=== PATIENT | female | born 1995 | race Caucasian/White ===

== ENCOUNTER 2016-10-22 18:03 | Emergency (ER) | payer OTHER ==
[2016-10-22 18:38] LABS: Hematocrit 40.7 % (37.0-47.0); Hemoglobin 13.6 gm/dL (12.5-16.0); Mean Cell Volume 81.6 fl (78-100); Mean Corpuscular Hemoglobin 27.3 pg (27-31); Mean Corpuscular Hgb Conc 33.4 g/dl (32-36); Mean Platelet Volume 9.6 fl (6.0-9.5); Neutrophil # 6.3 K/mm3 (1.3-6.0); Neutrophil % 61.2 % (42-75.0); Platelet Count 351 K/mm3 (150-450); Red Blood Count 4.99 M/mm3 (4.2-5.4); Red Cell Distribution Width 12.9 % (11.5-14.0); White Blood Count 10.2 K/mm3 (4.0-10.5)
[2016-10-22 18:55] LABS: ALT 66 U/L (19-67); AST 30 U/L (0-48); Alkaline Phosphatase * 49 U/L (50-170); Anion Gap 16.4 mmol/L (6.8-13.8); BUN/Creatinine Ratio 13.6 (9.0-21.6); Bilirubin, Total 0.3 mg/dL (0.0-1.1); Blood Urea Nitrogen 11 mg/dL (3-23); Ca. Corrected For Albumin 8.6 mg/dL (8.4-10.2); Calcium * 8.9 mg/dL (7.9-10.9); Carbon Dioxide 24.2 mmol/L (24-32.6); Chloride 105 mmol/L (97-106); Glucose * 99 mg/dL (70-110); Potassium 3.6 mmol/L (3.4-4.6); Sodium 142 mmol/L (132-142); Total Protein 7.7 gm/dL (6.2-8.2); Troponin I Less than 0.017 ng/ml (0.00-0.10)
[2016-10-22 19:02] LABS: Prothrombin Time (Patient) 9.5 Seconds (9.4-11.4)
[2016-10-22 19:03] LABS: INR 0.91 INR (0.90-1.10); Partial Thrombolplastin Time 26.2 Seconds (24-32)
[2016-10-22 20:15] VITALS: BP 134/87
--- NOTE | 2016-10-22 20:17 | ERNOTE ---
Chest Pain/Cardiac HPI Date of Service: 10/22/16 Chief Complaint: Chest Pain Time Seen by Provider: 10/22/16 20:17 Source: patient Exam Limitations: no limitations Immunizations: IMMUNIZATION HX Immunizations Up to Date Yes History of Influenza Vaccine No Hx Pneumococcal Vaccination No Allergies/Adverse Reactions: Allergies No Known Allergies Allergy (Verified 10/22/16 18:24) Home Medications: HOME MEDICATIONS Sertraline HCl [Zoloft] 100 mg PO DAILY 10/22/16 [Last Taken Unknown] Date (Duration): 10/20/16 Timing: constant Severity/Quality: moderate, pressure Location: substernal, central Chest Pain Radiation: no radiation Activities at Onset: none Nitro Today/Relief: no nitro taken today Aspirin Treatment Today: no aspirin today Associated Symptoms: Present: denies symptoms Prior Chest Pain/Cardiac Workup: Reports: non-cardiac Review of Systems - Review of Systems Constitutional: Present: no symptoms reported EYE: Present: no symptoms reported ENT: Present: no symptoms reported Respiratory: Present: no symptoms reported Cardiology: Present: See HPI Gastrointestinal/Abdominal: Present: no symptoms reported Genitourinary: Present: no symptoms reported Musculoskeletal: Present: no symptoms reported Skin: Present: no symptoms reported Neurological: Present: no symptoms reported Endocrine: Present: no symptoms reported Hematologic/Lymphatic: Present: no symptoms reported Psych: Present: no symptoms reported All Other Systems: All systems neg except as marked - Patient's Past Medical History Patient History - Medical: ADHD, Anxiety, Depression, UTI'S, Other Patient History - Cardiac/Respiratory: No pertinent hx Patient History - Cancer: Colon Patient History - Surgical Procedures: T & A, Other Patient History - Other: None LMP (females 10-50): now LMP (Calendar): 02/08/16 - Family History Mother Family History - Medical: No pertinent hx Father Family History - Medical: No pertinent hx - Social History Living Situations: home Abuse History: Hx of Substance Use Psych History: No pertinent hx Does anyone smoke in the home?: Yes - occ Alcohol Use: rarely Drug Use: none - Immunizations Immunizations Up to Date: Yes Hx Pneumococcal Vaccination: No History of Influenza Vaccine: No Physical Exam - Physical Exam General Appearance: Present: wd/wn, alert, no apparent distress Eye Exam: Normal inspection: bilateral, PERRL: bilateral, EOMI: bilateral Neck: Present: normal inspection, nontender Respiratory: Present: no respiratory distress, normal breath sounds, no accessory muscle use, chest tenderness - Mid sternal TTP. Cardiovascular/Chest: Present: regular rate, rhythm, no murmur. Absent: extra beats, gallop/S3, gallop/S4, friction rub Gastrointestinal/Abdominal: Present: normal bowel sounds, nondistended, soft, no organomegaly, tenderness - Mild epigastric TTP. Neurological Exam: Present: alert, oriented Skin Exam: Present: normal color, warm/dry ED Progress - Results and Orders Patient's Lab Results:: I have reviewed the patient's lab results. - Vital Signs Patient's Vital Signs:: I have reviewed the patient's vital signs. Vital Signs: Vital Signs 10/22/16 10/22/16 10/22/16 18:20 18:25 20:12 Temperature 36.9 C Pulse Rate 107 H 116 H Respiratory 16 16 Rate Blood Pressure 155/67 134/87 O2 Sat by Pulse 96 99 Oximetry - EKG EKG: nonspecific ST T wave changes, changed from - Previous EKG dated 09/30/15 - X-Ray X-Ray #1 X-Ray: chest - Chest xray PA/LAT: No acute finding. - Progress/Reassessment Chief Complaint: Chest Pain Departure - Departure Clinical Impression: Non-cardiac chest pain Disposition: Home self-care Condition: Good Instructions: Chest Wall Pain, [id number], Heartburn, [id number] Referrals: Lew Mcintyre DO [Primary Care Provider] -
--- OUTSIDE RECORDS SUMMARY | 2016-10-22 20:21 | XMS REPORT | Continuity of Care Document ---
:1995 Author Organization [facility] ([facility]) Address [address] [place] [address] Phone [phone] Care Team Providers Name Role Phone Lew Mcintyre Primary Care Provider [phone] Source Comments This disclosure is being made pursuant to the Care Everywhere program, applicable federal and state laws, and may not contain all informaitonavailable regarding this patient.[facility] ([facility]) Active Allergies and Adverse Reactions No Known Allergies Current Medications Prescription Sig. Disp. Refills Start Date End Date Status SERTraline 100 mg tablet Take 100 mg by Active mouth daily. Active Problems Not on file Most Recent Encounters Date Type Specialty Providers Description 09/25/2016 Office Visit Med GI/Hepatology Shelly Amador, Chief Comp: Patient MD Reported Reason For Visit 09/25/2016 Office Visit Med GI/Hepatology Shelly Amador Chief Comp: Patient MD Reported Reason For Visit 09/25/2016 Hospital Encounter Radiology Chief Comp: Patient Reported Reason For Visit 08/14/2016 Office Visit Pathology Shelly Amador, Chief Comp: Patient MD Reported Reason For Lab Services, Irl Visit 08/14/2016 Office Visit Med GI/Hepatology Shelly Amador, Dx: EDIN PRICE (nonalcoholic steatohepatitis) (Primary Dx) Social History Tobacco Use Types Packs/Day Years Used Date Heavy Tobacco Smoker Cigarettes 1 5 Smokeless Tobacco: Never Used Tobacco Cessation:Ready to Quit: No; Counseling Given: No Comments: Last Filed Vital Signs Vital Sign Reading Time Taken Blood Pressure 128/78 08/14/2016 2:05 PM RUG INSPECTOR HELPER Pulse 85 08/14/2016 2:05 PM RUG INSPECTOR HELPER Temperature 36.8 C (98.2 F) 08/14/2016 2:05 PM RUG INSPECTOR HELPER Respiratory Rate 20 12/18/2003 8:52 AM CDT Height 1.626 m (5' 4.02") 08/14/2016 2:05 PM RUG INSPECTOR HELPER Weight 95.2 kg (209 lb 14.1 oz) 08/14/2016 2:05 PM RUG INSPECTOR HELPER Body Mass Index 36.01 08/14/2016 2:05 PM RUG INSPECTOR HELPER Oxygen Saturation - - Plan of Care Health Maintenance Due Date Last Done Comments Hepatitis B Vaccine (1 of 3 - Primary Series) 1996 HPV Vaccine (1 of 3 - Female/Unknown 3 Dose Series) 11/13/2007 Tdap Vaccine 11/13/2007 Meningococcal Vaccine (1 of 1) 2012 Lipid Disorder Screening 2014 MMR Vaccine 2014 Td Vaccine 2014 Varicella Vaccine (1 of 2 - Adult - No Evidence of 2014 Immunity) Pneumococcal Vaccine (1 of 1 - PPSV23) 11/13/2015 Influenza Vaccine: Seasonal (#1) 04/03/2016 Results from Last 3 Months GAMMA GLUTAMYLTRANSPEPTIDASE (08/14/2016 3:32 PM) Component Value Range GGT 13 5-36 U/L Specimen Blood COMPREHENSIVE METABOLIC PANEL (CMP) (08/14/2016 3:32 PM) Component Value Range Sodium 140 135-145 mEq/L Potassium 3.8 3.5-5.0 mEq/L Chloride 102 95-107 mEq/L CO2 24 22-29 mEq/L Anion Gap 14 8-18 mEq/L BUN 9(L) 10-20 mg/dL Creatinine 0.7Comment: 0.5-1.0 mg/dL Creatinine switched to enzymatic method on 01/10/2011.GFR equation switched to IDMS-traceable MDRD equation on 01/10/2011. Calculated GFR values are not valid in clinical settings where serum creatinine is changing. Glucose 90Comment: 65-99 mg/dL The Expert Committee on the Diagnosis and Classification of Diabetes has defined impaired fasting glucose as greater than or equal to 100 mg/dL but less than 126 mg/dL.(Diabetes Care 28 (Suppl 1)S41,2005) Calcium 8.8 8.5-10.5 mg/dL Total Protein 6.6 6.0-8.0 g/dL Albumin 4.1 3.4-4.8 g/dL AST 22Comment: 0-32 U/L Adult reference ranges updated on 11/26/13 at 830am ALP 44 35-104 U/L Bilirubin Total <0.1 <=1.2 mg/dL ALT 40(H)Comment: 0-33 U/L The upper limit of normal for alanine aminotransferase (ALT) reference ranges for adults is controversial with some authorities recommending limit as low as 30 U/L for males and 19 U/L for females. Th ere is increased incidence of subclinical liver disease (e.g., early steatohepatitis) in patients with ALT values in the range of 31-41 U/L for males and 20-33 U/L for females. ALT values should alway s be interpreted in conjunction with clinical history, physical examination findings, and, if applicable, data from other diagnostic tests. Calculated GFR >90 >60 mL/min/1.73 m2 Specimen Blood PT/INR (PROTHROMBIN TIME/INR) VENOUS (08/14/2016 3:32 PM) Component Value Range PT (Prothrombin Time) 9 9-12 secs INR 1.0 <4.0 Specimen Blood CBC (COMPLETE BLOOD COUNT) (08/14/2016 3:32 PM) Component Value Range WBC Count 8.8 3.7-10.5 K/MM3 RBC Count 4.83 4.00-5.20 M/MM3 Hemoglobin 13.2 11.9-15.5 g/dL Hematocrit 40 35-47 % MCV (Mean Corpuscular Volume) 82 82-99 FL MCH (Mean Corpuscular Hemoglobin) 27 25-35 PG MCHC (Mean Corpuscular Hemoglobin Concentration) 33 32-36 % Platelet Count 333 150-400 K/MM3 MPV (Mean Platelet Volume) 9.9 9.4-12.3 FL RBC Dist Width-STD 37.8 36.4-46.3 FL RBC Distrib Width 12.8 9.0-14.5 % Specimen Whole Blood THYROID STIMULATING HORMONE (TSH), WITH REFLEX FREE T-4 (08/14/2016 3:32 PM) Component Value Range TSH, Reflex 2.97 0.27-4.20 IU/mL Specimen Blood PRIMARY BILIARY CIRRHOSIS SCREEN (08/14/2016 3:32 PM) Component Value Range PBC Antibody (Primary Biliary <20Comment: 0-20 UNITS Cirrhosis) Reference Ranges: Negative:<=20 Units Equivocal: 20 - 25 Units Positive:>=25 Units Specimen Blood IRON PANEL (IRON, TRANSFERRIN AND % SATURATION) (08/14/2016 3:32 PM) Component Value Range Iron, Blood 21(L) 37-145 g/dL Transferrin 288 200-360 mg/dL Iron % Saturation 5(L)Comment: 15-50 % Transferrin saturation is not reliable when there are high ferritin concentrations greater than 1,200 ng/mL. Specimen Blood IGG (08/14/2016 3:32 PM) Component Value Range IgG 124 157-4180 mg/dL Specimen Blood HEPATITIS C ANTIBODY (08/14/2016 3:32 PM) Component Value Range Hepatitis C Virus Antibody Negative Negative Specimen Blood HEPATITIS B SURFACE ANTIGEN (08/14/2016 3:32 PM) Component Value Range Hep B Surface Antigen Negative Negative Specimen Blood FERRITIN (08/14/2016 3:32 PM) Component Value Range Ferritin 64.3 13.0-150.0 ng/mL Specimen Blood CERULOPLASMIN (08/14/2016 3:32 PM) Component Value Range Ceruloplasmin 27 16-66 mg/dL Specimen Blood ANTI-NUCLEAR ANTIBODY SCREEN (08/14/2016 3:32 PM) Component Value Range DEVEN Screen <1:80 <1:40, <1:80 Specimen Blood ALPHA 1 ANTITRYPSIN (08/14/2016 3:32 PM) Component Value Range Alpha1 AT 130 90-200 mg/dL Specimen Blood ACTIN ANTIBODIES IGG (08/14/2016 3:32 PM) Component Value Range Actin Abs IgG <20Comment: <20 UNITS Reference Range: 1-19=normal 20 - 30=Weak positive > 30=Moderate to strong positive Specimen Blood
[2016-10-22] MEDS ORDERED: ASPIRIN 81 MG TAB.CHEW PO ONE (20:30)
[2016-10-22] MEDS ORDERED: ASPIRIN 81 MG TAB.CHEW ONE (20:36)
[2016-10-22] MEDS ORDERED: LIDOCAINE HCL 20 ML UDC MM ONE (20:45)
[2016-10-22] MEDS ORDERED: MAG HYDROX/ALUMINUM HYD/SIMETH 30 ML UDC PO ONE (20:46)
[2016-10-22] MEDS ORDERED: SUCRALFATE 1 G/10 ML UDC PO ONE (20:46)
== END 2016-10-22 22:16 | disposition home or self-care (01) ==
LOC: ER 18:03
DX: R07.89 Other chest pain (principal); Z87.440 Personal history of urinary (tract) infections; F41.9 Anxiety disorder, unspecified

== ENCOUNTER 2016-12-11 01:20 | Emergency (ER) | payer OTHER ==
[2016-12-11 01:59] LABS: Urine Bilirubin Negative (NEGATIVE); Urine Blood Negative /ul (NEGATIVE); Urine Ketone Negative (NEGATIVE); Urine Nitrite Negative (NEGATIVE); Urine Protein Negative (NEGATIVE); Urine Specific Gravity 1.025 SP.GR. (1.005-1.010); Urine Urobilinogen Normal (NORMAL)
[2016-12-11 02:19] LABS: Urine Appearance Clear; Urine Bacteria 2+; Urine Color Yellow; Urine RBC None Seen /hpf (0-5); Urine WBC 0-5 /hpf (0-5)
--- NOTE | 2016-12-11 02:26 | ERNOTE ---
Back Pain ER HPI Date of Service: 12/11/16 Presenting Symptoms: other - LEFT SIDED FLANK PAIN Time Seen by Provider: 12/11/16 01:38 Source: patient Exam Limitations: no limitations Immunizations: IMMUNIZATION HX Immunizations Up to Date Yes History of Influenza Vaccine No Hx Pneumococcal Vaccination No Allergies/Adverse Reactions: Allergies No Known Allergies Allergy (Verified 10/22/16 18:24) Home Medications: HOME MEDICATIONS Sertraline HCl [Zoloft] 100 mg PO DAILY 10/22/16 [Last Taken Unknown] Multivitamin [Poly-Vitamin] 1 each PO DAILY 12/11/16 [Last Taken Unknown] Date (Duration): 12/11/16 Timing: Reports: getting worse Location of pain: Reports: mid back Activities at Onset: Reports: activity Recent Injury?: Reports: no Possible Precipitating Factor: Reports: none Modifying Factors - (Improves): Reports: nothing Modifying Factors - (Worsens): Reports: movement flexion Associated Symptoms: Reports: problems urinating. Denies: nausea/vomiting Prior Treament: Reports: similar symptoms before. Denies: recently seen Review of Systems - Narrative Narrative: Patient has had flank pain x several days not improving with heating pad, tried ibuprofen that has helped, denies dysuria - Review of Systems Constitutional: Present: no symptoms reported. Absent: fever, chills EYE: Present: no symptoms reported ENT: Present: no symptoms reported Respiratory: Present: no symptoms reported Cardiology: Present: no symptoms reported Gastrointestinal/Abdominal: Present: other - lft flank pain Genitourinary: Present: no symptoms reported Musculoskeletal: Present: back pain, other - denies any injury Skin: Present: no symptoms reported Neurological: Present: no symptoms reported Endocrine: Present: no symptoms reported Hematologic/Lymphatic: Present: no symptoms reported Psych: Present: no symptoms reported All Other Systems: All systems neg except as marked - Narrative Narrative: Patient is concerned about UTI as well. PMH, SH, FH, Medications and Allergies reivewed - Patient's Past Medical History Patient History - Medical: ADHD, Anxiety, Depression, UTI'S, Other Patient History - Cardiac/Respiratory: No pertinent hx Patient History - Cancer: Colon Patient History - Surgical Procedures: T & A, Other Patient History - Other: None LMP (females 10-50): last week LMP (Calendar): 02/08/16 - Family History Mother Family History - Medical: No pertinent hx Father Family History - Medical: No pertinent hx - Social History Living Situations: home Abuse History: Hx of Substance Use Psych History: No pertinent hx Does anyone smoke in the home?: Yes - occ Smoking Status: Current every day smoker Patient requests Smoking Cessation Consult: No Initiate information on Smoking Cessation: No Alcohol Use: rarely Drug Use: none - Immunizations Immunizations Up to Date: Yes Hx Pneumococcal Vaccination: No History of Influenza Vaccine: No Physical Exam - Physical Exam General Appearance: Present: wd/wn, alert, no apparent distress Eye Exam: Normal inspection: bilateral, PERRL: bilateral Ears, Nose, Throat: Present: normal ENT inspection Neck: Present: normal inspection, nontender Respiratory: Present: no respiratory distress, normal breath sounds, no accessory muscle use, chest nontender Cardiovascular/Chest: Present: regular rate, rhythm, no murmur, normal peripheral pulses Gastrointestinal/Abdominal: Present: normal bowel sounds, nontender, nondistended, no organomegaly Rectal Exam: Present: deferred Back Exam: Present: normal inspection, normal range of motion, no vertebral tenderness, CVA tenderness (L) Extremity Exam: Present: normal inspection, normal range of motion, no edema Neurological Exam: Present: alert, oriented, normal mood/affect Skin Exam: Present: normal color, warm/dry Lymphatic Exam: Present: no adenopathy Pelvic Exam: Present: deferred ED Progress - Date and Time Seen: Date and Time: 12/11/16 02:25 awaiting lab results in no distress - Results and Orders Patient's Lab Results:: I have reviewed the patient's lab results. - Vital Signs Patient's Vital Signs:: I have reviewed the patient's vital signs. Vital Signs: Vital Signs 12/11/16 01:25 Temperature 37.0 C Pulse Rate 120 H Respiratory 16 Rate Blood Pressure 149/79 O2 Sat by Pulse 98 Oximetry - Progress/Reassessment Chief Complaint: Back Pain Progress:: Improved Plan - Plan Plan: patient is stable for discharge. Departure Clinical Impression: Back pain Qualifiers: Back pain location: back pain in unspecified location Chronicity: acute Back pain laterality: left Qualified Code(s): M54.9 - Dorsalgia, unspecified - Departure Disposition: Home self-care Instructions: Flank Pain Print Language: Slovenian Additional Instructions: Call your doctor if pain is not resolving. Continue ibuprofen as needed and push fluids Referrals: Mcintyre,Kolleen, [Primary Care Provider] -
--- OUTSIDE RECORDS SUMMARY | 2016-12-11 02:45 | XMS REPORT | Continuity of Care Document ---
:1995 Author Organization [facility] ([facility]) Address [address] [place] [address] Phone [phone] Care Team Providers Name Role Phone Lew Mcintyre Primary Care Provider [phone] Source Comments This disclosure is being made pursuant to the Care Everywhere program, applicable federal and state laws, and may not contain all informaitonavailable regarding this patient.[facility] ([facility]) Active Allergies and Adverse Reactions No Known Allergies Current Medications Prescription Sig. Disp. Refills Start Date End Date Status SERTraline 100 mg tablet Take 100 mg by Active mouth daily. Active Problems Not on file Most Recent Encounters Date Type Specialty Providers Description 11/06/2016 Hospital Encounter Radiology Chief Comp: Patient Reported Reason For Visit 11/06/2016 Office Visit Med GI/Hepatology Shelly Amador, Chief Comp: Patient MD Reported Reason For Visit 09/25/2016 Office Visit Med GI/Hepatology Shelly Amador, Chief Comp: Patient MD Reported Reason For Visit 09/25/2016 Office Visit Med GI/Hepatology Shelly Amador, Chief Comp: Patient MD Reported Reason For Visit 09/25/2016 Hospital Encounter Radiology Chief Comp: Patient Reported Reason For Visit Social History Tobacco Use Types Packs/Day Years Used Date Heavy Tobacco Smoker Cigarettes 1 5 Smokeless Tobacco: Never Used Tobacco Cessation:Ready to Quit: No; Counseling Given: No Comments: Last Filed Vital Signs Vital Sign Reading Time Taken Blood Pressure 128/78 08/14/2016 2:05 PM FACILITIES DIRECTOR Pulse 85 08/14/2016 2:05 PM FACILITIES DIRECTOR Temperature 36.8 C (98.2 F) 08/14/2016 2:05 PM FACILITIES DIRECTOR Respiratory Rate 20 12/18/2003 8:52 AM CDT Height 1.626 m (5' 4.02") 08/14/2016 2:05 PM FACILITIES DIRECTOR Weight 95.2 kg (209 lb 14.1 oz) 08/14/2016 2:05 PM FACILITIES DIRECTOR Body Mass Index 36.01 08/14/2016 2:05 PM FACILITIES DIRECTOR Oxygen Saturation - - Plan of Care [...] (#1) 04/03/2016 Results from Last 3 Months Not on file
[2016-12-11 03:01] VITALS: BP 127/79
== END 2016-12-11 02:05 | disposition home or self-care (01) ==
LOC: ER 01:20
DX: M54.9 Dorsalgia, unspecified (principal); F17.210 Nicotine dependence, cigarettes, uncomplicated; F41.9 Anxiety disorder, unspecified; Z87.440 Personal history of urinary (tract) infections

== ENCOUNTER 2017-03-21 18:33 | Emergency (ER) | payer SELFPAY ==
[2017-03-21 19:02] LABS: Urine Bilirubin Negative (NEGATIVE); Urine Blood Negative /ul (NEGATIVE); Urine Ketone Negative (NEGATIVE); Urine Nitrite Negative (NEGATIVE); Urine Protein Negative (NEGATIVE); Urine Specific Gravity 1.015 SP.GR. (1.005-1.010); Urine Urobilinogen Normal (NORMAL); Urine pH 6.5 pH (5.0-7.0)
[2017-03-21 19:16] LABS: Urine Appearance Clear; Urine Bacteria 1+; Urine Color Yellow; Urine RBC None Seen /hpf (0-5); Urine WBC None Seen /hpf (0-5)
--- NOTE | 2017-03-21 19:16 | ERNOTE ---
Abdominal HPI - Narrative Date of Service: 03/21/17 - General Chief Complaint: Abdominal Pain Time Seen by Provider: 03/21/17 19:13 Source: patient, RN notes reviewed Exam Limitations: no limitations - Immun/Allergies/Home Medications Immunizatons: IMMUNIZATION HX Immunizations Up to Date Yes History of Influenza Vaccine No Hx Pneumococcal Vaccination No Allergies/Adverse Reactions: Allergies No Known Allergies Allergy (Verified 03/21/17 18:48) Home Medications: HOME MEDICATIONS Sertraline HCl [Zoloft] 100 mg PO DAILY 10/22/16 [Last Taken Unknown] - History of Present Illness Narrative: 21 y/o female ambulatory to the ED for lower abdominal pain that began 4 days ago. She had one episode of vomiting yesterday and vomited twice today. She denies any diarrhea or constipation. Her LMP was 03/09/17 but was late and only lasted 2 days. She denies any urinary symptoms. Timing: constant Quality: moderate, stabbing, other - pulling Activities at Onset: none Prior Abdominal Problems: Present: none Prior Treatment: Absent: recently seen Review of Systems - Review of Systems Constitutional: Present: malaise. Absent: recent illness, fever, chills EYE: Present: no symptoms reported ENT: Absent: nose congestion, sore throat Respiratory: Absent: shortness of breath, cough Cardiology: Absent: chest pain, claudication Gastrointestinal/Abdominal: Present: nausea, vomiting, abdominal pain, eating less, drinking less. Absent: diarrhea, constipation Genitourinary: Absent: frequency, dysuria, hematuria Musculoskeletal: Absent: back pain, muscle pain Skin: Absent: rash, lesions Neurological: Absent: headache, dizziness/light-headedness Endocrine: Present: no symptoms reported Hematologic/Lymphatic: Present: no symptoms reported Psych: Present: no symptoms reported - Patient's Past Medical History Patient History - Medical: ADHD, Anxiety, Depression, UTI'S, Other - Fatty liver Patient History - Cardiac/Respiratory: No pertinent hx Patient History - Cancer: No Hx of Cancer Patient History - Surgical Procedures: T & A, Other Patient History - Other: None LMP (Calendar): 03/09/17 - Family History Mother Family History - Medical: No pertinent hx Father Family History - Medical: No pertinent hx - Social History Living Situations: significant other Abuse History: Hx of Substance Use Psych History: Psychiatric Hx - Suicidal thoughts, Self mutilation Does anyone smoke in the home?: Yes - occ Smoking Status: Current every day smoker Cigarettes Packs Per Day: 0.2 Alcohol Use: rarely Drug Use: none - Immunizations Immunizations Up to Date: Yes Hx Pneumococcal Vaccination: No History of Influenza Vaccine: No Physical Exam - Physical Exam General Appearance: Present: wd/wn, alert, no apparent distress, obese Neck: Present: normal inspection, nontender, supple Respiratory: Present: no respiratory distress, normal breath sounds, no accessory muscle use, lungs clear Cardiovascular/Chest: Present: regular rate, rhythm, no murmur, normal peripheral pulses Gastrointestinal/Abdominal: Present: soft, tenderness - Lower abdomen - worse on left, distended - Obese. Absent: guarding, rebound, mass Back Exam: Present: normal inspection, no CVA tenderness Extremity Exam: Present: normal inspection, normal range of motion, no edema Neurological Exam: Present: alert, oriented, normal mood/affect, no motor/ sensory deficits Skin Exam: Present: normal color, warm/dry ED Progress - Results and Orders Patient's Lab Results:: I have reviewed the patient's lab results. - Vital Signs Patient's Vital Signs:: I have reviewed the patient's vital signs. Vital Signs: Vital Signs 03/21/17 18:42 Temperature 36.0 C L Pulse Rate 111 H Respiratory 18 Rate Blood Pressure 140/73 O2 Sat by Pulse 97 Oximetry - X-Ray X-Ray #1 X-Ray: abdomen Interpretation: Interp. by me X-ray Comments: Nonobstructive bowel gas pattern - Progress/Reassessment Chief Complaint: Abdominal Pain Progress:: Improved Plan - Plan Plan: Pain improved with Toradol. No nausea/vomiting while in dept. Labs and xray unremarkable for any acute etiology of problem. Discussed f/u for worsening symptoms. Patient in agreement with plan. Departure - Departure Clinical Impression: Abdominal pain in female patient Disposition: Home Follow Up Needed Condition: Stable Instructions: Abdominal Pain, Adult, [id number] Additional Instructions: Adequate fluid intake Soft, bland diet as tolerated Tylenol for pain Follow up for worsening symptoms as discussed Referrals: Lew Mcintyre DO [Primary Care Provider] -
[2017-03-21 19:17] LABS: Hematocrit 41.9 % (37.0-47.0); Hemoglobin 14.1 gm/dL (12.5-16.0); Mean Cell Volume 80.7 fl (78-100); Mean Corpuscular Hemoglobin 27.2 pg (27-31); Mean Corpuscular Hgb Conc 33.7 g/dl (32-36); Mean Platelet Volume 9.8 fl (6.0-9.5); Neutrophil # 4.5 K/mm3 (1.3-6.0); Neutrophil % 48.6 % (42-75.0); Platelet Count 349 K/mm3 (150-450); Red Blood Count 5.19 M/mm3 (4.2-5.4); Red Cell Distribution Width 12.3 % (11.5-14.0); White Blood Count 9.2 K/mm3 (4.0-10.5)
[2017-03-21 19:27] LABS: Albumin * 3.9 gm/dl (3.4-5.0); Anion Gap 13.6 mmol/L (6.8-13.8); BUN/Creatinine Ratio 11.4 (9.0-21.6); Bilirubin, Total 0.3 mg/dL (0.0-1.1); Ca. Corrected For Albumin 8.5 mg/dL (8.4-10.2); Calcium * 8.7 mg/dL (7.9-10.9); Carbon Dioxide 26.9 mmol/L (24-32.6); Potassium 3.5 mmol/L (3.4-4.6); Total Protein 7.2 gm/dL (6.2-8.2)
[2017-03-21] MEDS ORDERED: KETOROLAC TROMETHAMINE 60 MG/2 ML VIAL IM ONE ×2 (19:27→19:28)
[2017-03-21 20:21] VITALS: BP 123/72
== END 2017-03-21 20:41 | disposition home or self-care (01) ==
LOC: ER 18:33
DX: R10.32 Left lower quadrant pain (principal); F32.9 Major depressive disorder, single episode, unspecified; Z87.440 Personal history of urinary (tract) infections; F17.210 Nicotine dependence, cigarettes, uncomplicated

== ENCOUNTER 2017-04-25 23:01 | Emergency (ER) | payer SELFPAY ==
[2017-04-25 23:29] LABS: Urine Bilirubin Negative (NEGATIVE); Urine Blood 25 /ul (NEGATIVE); Urine Ketone Negative (NEGATIVE); Urine Nitrite Negative (NEGATIVE); Urine Protein Negative (NEGATIVE); Urine Specific Gravity 1.015 SP.GR. (1.005-1.010); Urine Urobilinogen Normal (NORMAL)
[2017-04-25 23:40] LABS: Urine Appearance Clear; Urine Bacteria 1+; Urine Color Yellow; Urine RBC 0-5 /hpf (0-5); Urine WBC TRACE /hpf (0-5)
--- NOTE | 2017-04-26 00:23 | ERNOTE ---
ER Female HPI Stated Complaint: UTI Presenting Symptoms: dysuria Time Seen by Provider: 04/26/17 00:16 Source: patient Exam Limitations: no limitations Immunizations: IMMUNIZATION HX Immunizations Up to Date Yes History of Influenza Vaccine No Hx Pneumococcal Vaccination No Allergies/Adverse Reactions: Allergies No Known Allergies Allergy (Verified 04/25/17 23:16) Home Medications: HOME MEDICATIONS Sertraline HCl [Zoloft] 100 mg PO DAILY 10/22/16 [Last Taken Unknown] Phenazopyridine HCl [Pyridium] 100 mg PO TID #9 tab 04/26/17 [Last Taken Unknown ] - History of Present Illness Narrative: Pt has had dysuria and hematuria for approx 1 week. also has low back pain Timing: Present: constant, getting worse Quality: Present: moderate Onset Location: Present: urethral Radiation: Present: none Activities at Onset: Present: none Prior Abdominal Problems: Present: none Review of Systems - Review of Systems Constitutional: Absent: recent illness, fever, chills EYE: Present: no symptoms reported ENT: Present: no symptoms reported Respiratory: Present: no symptoms reported Cardiology: Present: no symptoms reported Gastrointestinal/Abdominal: Present: abdominal pain Genitourinary: Present: frequency, pain, dysuria, hematuria Musculoskeletal: Present: back pain Skin: Present: no symptoms reported Neurological: Present: no symptoms reported Endocrine: Present: no symptoms reported Hematologic/Lymphatic: Present: no symptoms reported Psych: Present: no symptoms reported - Patient's Past Medical History Patient History - Medical: ADHD, Anxiety, Depression, UTI'S, Other Patient History - Cardiac/Respiratory: No pertinent hx Patient History - Cancer: No Hx of Cancer Patient History - Surgical Procedures: T & A, Other Patient History - Other: None LMP (Calendar): 03/11/17 - Family History Mother Family History - Medical: No pertinent hx Father Family History - Medical: No pertinent hx - Social History Living Situations: home Abuse History: Hx of Substance Use Psych History: Psychiatric Hx, Hx of Anxiety, Hx of Depression, Current tx/ever been on anti-depressants or anti-anxiety meds Does anyone smoke in the home?: Yes - occ Smoking Status: Current every day smoker Alcohol Use: rarely Drug Use: none - Immunizations Immunizations Up to Date: Yes Hx Pneumococcal Vaccination: No History of Influenza Vaccine: No Physical Exam - Physical Exam General Appearance: Present: wd/wn, alert, no apparent distress Head Exam: Present: normal inspection, no evidence of injury Respiratory: Present: no respiratory distress, normal breath sounds, no accessory muscle use Cardiovascular/Chest: Present: regular rate, rhythm, no murmur Gastrointestinal/Abdominal: Present: normal bowel sounds, tenderness - suprapubic. Absent: guarding, rebound Back Exam: Present: normal inspection, no CVA tenderness, no vertebral tenderness, other - SI tenderness bilateral Neurological Exam: Present: alert, oriented, normal mood/affect Skin Exam: Present: normal color, warm/dry Lymphatic Exam: Present: no adenopathy ED Progress - Results and Orders Patient's Lab Results:: I have reviewed the patient's lab results. Results and Orders: Laboratory Tests 04/25/17 04/25/17 04/26/17 23:17 23:17 00:29 WBC 8.7 Hgb 14.7 Hct 43.3 Plt Count 332 Sodium Potassium Chloride Carbon Dioxide Anion Gap BUN Creatinine Est GFR (Non-Af Amer) BUN/Creatinine Ratio Random Glucose Calcium Urine Color Yellow Urine Appearance Clear Urine pH 6.0 Ur Specific [place] 1.015 Urine Protein Negative Urine Glucose (UA) Negative Urine Ketones Negative Urine Blood 25 H Urine Nitrate Negative Urine Bilirubin Negative Urine Urobilinogen Normal Ur Leukocyte Esterase Negative Urine RBC 0-5 Urine WBC Trace H Ur Epithelial Cells 10-25 H Urine Bacteria 1+ H Urine Culture Comments No culture indicated Urine HCG, Qual Negative 04/26/17 00:29 WBC Hgb Hct Plt Count Sodium 141 Potassium 4.1 Chloride 103 Carbon Dioxide 25.6 Anion Gap 16.5 H BUN 12 Creatinine 0.87 Est GFR (Non-Af Amer) 88 BUN/Creatinine Ratio 13.8 Random Glucose 105 Calcium 9.7 Urine Color Urine Appearance Urine pH Ur Specific [place] Urine Protein Urine Glucose (UA) Urine Ketones Urine Blood Urine Nitrate Urine Bilirubin Urine Urobilinogen Ur Leukocyte Esterase Urine RBC Urine WBC Ur Epithelial Cells Urine Bacteria Urine Culture Comments Urine HCG, Qual - Vital Signs Patient's Vital Signs:: I have reviewed the patient's vital signs. Vital Signs: Vital Signs 04/25/17 23:12 Temperature 36.4 C L Pulse Rate 86 Respiratory 18 Rate Blood Pressure 150/83 O2 Sat by Pulse 98 Oximetry - Progress/Reassessment Chief Complaint: Genitourinary Problem Departure Clinical Impression: Dysuria - Departure Disposition: Home Follow Up Needed Condition: Good Instructions: Dysuria Additional Instructions: you may take the pyridium every 8 hours as needed. See your primary care physician for further evaluation of the blood in your urine. Referrals: Lew Mcintyre DO [Primary Care Provider] - Prescriptions: Phenazopyridine HCl [Pyridium] 100 mg PO TID #9 tab
[2017-04-26 00:30] VITALS: BP 135/86
[2017-04-26 00:31] LABS: Hematocrit 43.3 % (37.0-47.0); Hemoglobin 14.7 gm/dL (12.5-16.0); Mean Cell Volume 81.5 fl (78-100); Mean Corpuscular Hemoglobin 27.7 pg (27-31); Mean Corpuscular Hgb Conc 33.9 g/dl (32-36); Mean Platelet Volume 9.6 fl (6.0-9.5); Platelet Count 332 K/mm3 (150-450); Red Blood Count 5.31 M/mm3 (4.2-5.4); Red Cell Distribution Width 12.9 % (11.5-14.0); White Blood Count 8.7 K/mm3 (4.0-10.5)
[2017-04-26 00:44] LABS: Anion Gap 16.5 mmol/L (6.8-13.8); BUN/Creatinine Ratio 13.8 (9.0-21.6); Calcium * 9.7 mg/dL (7.9-10.9); Carbon Dioxide 25.6 mmol/L (24-32.6); Estimated Creat Clear 89.1; Potassium 4.1 mmol/L (3.4-4.6)
[2017-04-26] MEDS ORDERED: PHENAZOPYRIDINE HCL 100 MG TABLET PO ONE (00:49)
[2017-04-26] MEDS ORDERED: PHENAZOPYRIDINE HCL 100 MG TABLET ONE (00:51)
== END 2017-04-26 00:55 | disposition home or self-care (01) ==
LOC: ER 23:01
DX: R30.0 Dysuria (principal); F17.200 Nicotine dependence, unspecified, uncomplicated